=== PATIENT | male | born 1960 | race Caucasian/White ===

== ENCOUNTER 2016-07-12 17:51 | Inpatient (IN) | payer SELFPAY ==
[~2016-07-12] VITALS: Ht 170.2 cm; Wt 71.1 kg
[2016-07-12 17:56] VITALS: BP 139/86; PULSE 120; RESP 20; TEMP 98; O2SAT 98
[2016-07-12 17:57] VITALS: O2SAT 99
[2016-07-12] MEDS ORDERED: SODIUM CHLOR 0.9% 1000 ML INJ 1,000 ML IV SCH (18:02)
[2016-07-12 18:09] VITALS: O2SAT 99
[2016-07-12] MEDS ORDERED: PROPOFOL 1000 MG/100 ML INJ 100 ML IV SCH (18:15)
[2016-07-12] MEDS ORDERED: SODIUM CHLORIDE 0.9% FLUSH 5 ML FLUSH IVF PRN (18:15)
[2016-07-12 18:30] LABS: BLOOD GAS BASE EXCESS -5.6 mmol/L (-2-2); BLOOD GAS CARBOXYHEMOGLOBIN 5.7 % (0-4); BLOOD GAS HCO3 20 mmol/L (22-26); BLOOD GAS O2 HGB SATURATION 91 % (90-100); BLOOD GAS OXYGEN CONTENT 18.9 Vol % (12.0-20.0); BLOOD GAS PCO2 48 mmHg (38-42); BLOOD GAS PO2 165 mmHG (61-120); BLOOD GAS TOTAL HGB 14.5 G/DL (12.0-16.0); TEMP CORR TO 98.6
[2016-07-12 18:31] LABS: CRITICAL VALUE YES; DRAW SITE RT RADIAL; FIO2 50 %; NUMBER OF ARTERIAL PUNCTURES 1; OXYGEN DEVICE VENTILATOR
[2016-07-12 18:32] LABS: STAT YES; ULNAR PULSE PRESENT
--- NOTE | 2016-07-12 18:32 | PD ---
HPI Chief Complaint: Altered Mental Status Time Seen by Provider: 18:02 Travel History International Travel<30 days: No Contact w/Intl Traveler<30days: No Traveled to known affect area: No History of Present Illness HPI Patient is a 55-year-old male who is brought in by EMS unconscious. Per EMS he was with 2 other people reportedly doing K2 and drinking alcohol. They were found unresponsive on scene. EMS is assisting ventilations with BVM. He was given 1 mg of Narcan by EMS without response. Per EMS she has no gag reflex. Patient was seen here last week intoxicated with a minor wound to his left leg. Patient is unresponsive, unable to provide any history. [facility] Past Medical History Medical History: Unable to Obtain Immunizations Current: No Past Surgical History Surgical History: Unable to Obtain Social History Alcohol Use: Yes Tobacco Use: Yes Substance Use: No Allergies-Medications (Allergen,Severity, Reaction): Coded Allergies: No Known Allergies (Unverified , 07/07/16) Reported Meds & Prescriptions Reported Meds & Active Scripts Active No Active Prescriptions or Reported Medications Review of Systems ROS Limitations: Altered Mental Status, Unresponsive Physical Exam Exam Limitations: Clinical Condition, Altered Mental Status Narrative GENERAL: Unresponsive SKIN: Warm and dry. HEAD: Atraumatic. Normocephalic. EYES: Pupils equal and round. No scleral icterus. Pinpoint pupils, extraocular movements intact. ENT: No nasal bleeding or discharge. Mucous membranes pink and moist. NECK: Trachea midline. No JVD. CARDIOVASCULAR: Regular rate and rhythm. No murmur appreciated. RESPIRATORY: No accessory muscle use. Clear to auscultation. Breath sounds equal bilaterally. GASTROINTESTINAL: Abdomen soft, non-tender, nondistended. MUSCULOSKELETAL: No obvious deformities. No clubbing. No cyanosis. No edema. NEUROLOGICAL: Unresponsive, no gag reflex. Unable to assess neurologic status further. Data Data Last Documented VS Vital Signs Date Time Temp Pulse Resp B/P Pulse Ox O2 Delivery O2 Flow Rate FiO2 07/12/16 18:09 99 Ventilator 07/12/16 17:57 50 07/12/16 17:56 98.0 120 20 139/86 Orders Electrocardiogram (07/12/16 18:02) Alcohol (Ethanol) (07/12/16 18:02) Complete Blood Count With Diff (07/12/16 18:02) Comprehensive Metabolic Panel (07/12/16 18:02) Creatine Kinase (Cpk) (07/12/16 18:02) Drug Screen, Random Urine (07/12/16 18:02) Prothrombin Time / Inr (Pt) (07/12/16 18:02) Act Partial Throm Time (Ptt) (07/12/16 18:02) Chest, Single Ap (07/12/16 18:02) Blood Glucose (07/12/16 18:02) Ecg Monitoring (07/12/16 18:02) Iv Access Insert/Monitor (07/12/16 18:02) Cath For Specimen (07/12/16 18:02) Oximetry (07/12/16 18:02) Sodium Chloride 0.9% Flush (Ns Flush) (07/12/16 18:15) Sodium Chlor 0.9% 1000 Ml Inj (Ns 1000 M (07/12/16 18:02) Propofol 1000 Mg/100 Ml Inj (Diprivan 10 (07/12/16 18:15) Restraints Non-Violent GLORIA.Q3H (07/12/16 18:09) Urinary Catheter Management GLORIA.Q8H (07/12/16 18:09) Lactic Acid (07/12/16 18:09) Admit Order (Ed Use Only) (07/12/16 ) Troponin I (07/12/16 18:02) Labs Laboratory Tests Test 07/12/16 07/12/16 18:02 18:10 Sodium Level 139 MEQ/L Potassium Level 3.7 MEQ/L Chloride Level 105 MEQ/L Carbon Dioxide Level 23.7 MEQ/L Anion Gap 10 MEQ/L Blood Urea Nitrogen 9 MG/DL Creatinine 0.69 MG/DL Estimat Glomerular Filtration 119 ML/MIN Rate Random Glucose 106 MG/DL Calcium Level 7.3 MG/DL Protein Corrected Calcium 7.4 MG/DL Total Bilirubin 0.2 MG/DL Aspartate Amino Transf 46 U/L (AST/SGOT) Alanine Aminotransferase 50 U/L (ALT/SGPT) Alkaline Phosphatase 95 U/L Total Creatine Kinase 174 U/L Troponin I LESS THAN 0.02 NG/ML Total Protein 7.0 GM/DL Albumin 3.4 GM/DL Ethyl Alcohol Level 259 MG/DL White Blood Count 11.0 TH/MM3 Red Blood Count 4.68 MIL/MM3 Hemoglobin 15.0 GM/DL Hematocrit 44.8 % Mean Corpuscular Volume 95.7 FL Mean Corpuscular Hemoglobin 32.1 PG Mean Corpuscular Hemoglobin 33.5 % Concent Red Cell Distribution Width 14.8 % Platelet Count 282 TH/MM3 Mean Platelet Volume 7.2 FL Neutrophils (%) (Auto) 77.8 % Lymphocytes (%) (Auto) 15.5 % Monocytes (%) (Auto) 6.1 % Eosinophils (%) (Auto) 0.2 % Basophils (%) (Auto) 0.4 % Neutrophils # (Auto) 8.6 TH/MM3 Lymphocytes # (Auto) 1.7 TH/MM3 Monocytes # (Auto) 0.7 TH/MM3 Eosinophils # (Auto) 0.0 TH/MM3 Basophils # (Auto) 0.0 TH/MM3 CBC Comment DIFF FINAL Differential Comment Prothrombin Time 10.0 SEC Prothromb Time International 0.9 RATIO Ratio Activated Partial 25.9 SEC Thromboplast Time MDM Medical Decision Making Medical Screen Exam Complete: Yes Emergency Medical Condition: Yes Medical Record Reviewed: Yes Differential Diagnosis Drug overdose, electrolyte abnormalities, Infection, respiratory failure Narrative Course Patient is a 55 year old male who comes in unresponsive after a drug overdose. Patient unable to protect his airway. Patient intubated on arrival. Labs sent. Drug screen positive for benzodiazepines. CXR confirms ETT placement. Patient sedated on propofol. Given IVF. Admitted for further management. Procedures Procedure Narrative Residual performed emergently INTUBATION: The patient was put in optimal position for the procedure. Rapid sequence intubation was initiated by me using 20 milligrams of etomidate IV and 100 milligrams of succinylcholine IV. The patient was intubated with a 8.0 cuffed endotracheal tube. Tube placement was confirmed by visualization of the tube and balloon passing through the cords, capnometry and subsequent chest x-ray. Breath sounds were equal and well aerated bilaterally postintubation. No breath sounds over stomach. Patient tolerated procedure well. Mac 4 blade used. Airway is anterior. Diagnosis Primary Impression: Respiratory failure Qualified Code: J96.00 - Acute respiratory failure, unspecified whether with hypoxia or hypercapnia Additional Impression: Drug intoxication Qualified Code: F19.929 - Drug intoxication, with unspecified complication Admitting Information Admitting Physician Requests: Admit Scripts No Active Prescriptions or Reported Meds Loretta Osuna MD Jul 12, 2016 18:31
[2016-07-12 18:41] LABS: AUTOMATED NEUTROPHIL # 8.6 TH/MM3 (1.8-7.7); BASOPHIL % 0.4 % (0.0-2.0); EOSINOPHIL % 0.2 % (0.0-4.0); HEMATOCRIT 44.8 % (39.0-51.0); HEMO FLAGS DIFF FINAL; LYMPH % 15.5 % (9.0-44.0); LYMPHOCYTE # 1.7 TH/MM3 (1.0-4.8); MEAN CELL VOLUME 95.7 FL (80.0-100.0); MEAN CORPUSCULAR HEMOGLOBIN 32.1 PG (27.0-34.0); MEAN CORPUSCULAR HGB CONC 33.5 % (32.0-36.0); MONO % 6.1 % (0.0-8.0); NEUT % 77.8 % (16.0-70.0); PLATELET COUNT 282 TH/MM3 (150-450); RED BLOOD COUNT 4.68 MIL/MM3 (4.50-5.90); RED CELL DISTRIBUTION WIDTH 14.8 % (11.6-17.2)
[2016-07-12] MEDS ORDERED: ETOMIDATE 20 MG/10 ML VIAL IV PUSH ONE (18:45)
[2016-07-12] MEDS ORDERED: SUCCINYLCHOLINE CHLORIDE 200 MG/10 ML VIAL IV PUSH ONE (18:45)
[2016-07-12 18:51] LABS: APTT (PATIENT) 25.9 SEC (24.3-30.1); INTERNATIONAL NORMALIZED RATIO 0.9 RATIO
[2016-07-12 18:59] LABS: AMPHETAMINE, URINE NEG (NEG); BARBITURATES, URINE NEG (NEG); COCAINE, URINE NEG (NEG)
[2016-07-12] MEDS ORDERED: CHLORHEXIDINE GLUCONATE 2 % 1 PACK (2 CLOTHS) TOP PRN (19:00)
[2016-07-12] MEDS ORDERED: POTASSIUM PHOSPHATE MONOBASIC 500 MG TAB PO/TUBE PRN (19:00)
[2016-07-12] MEDS ORDERED: POTASSIUM PHOSPHATE MONOBASIC 500 MG TAB PO PRN (19:00)
[2016-07-12] MEDS ORDERED: MAGNESIUM OXIDE 400 MG TAB PO PRN (19:00)
[2016-07-12] MEDS ORDERED: POTASSIUM CHLOR 20 MEQ PREMIX 100 ML IV PRN ×2 (19:00)
[2016-07-12] MEDS ORDERED: MISCELLANEOUS NURSING INFORMATION XX SCH (19:00)
[2016-07-12] MEDS ORDERED: POTASSIUM CHLOR 40 MEQ PREMIX 100 ML IV-CENTRAL PRN ×2 (19:00)
[2016-07-12] MEDS ORDERED: POTASSIUM CL 40 MEQ/30 ML LIQ UDC PO/TUBE PRN ×2 (19:00)
[2016-07-12] MEDS ORDERED: SODIUM PHOSPHATE INJ 30 MMOL in SODIUM CHLOR 0.9% 250 ML INJ 240 ML IV PRN (19:00)
[2016-07-12] MEDS ORDERED: MAGNESIUM SULFATE INJ 2 GM in SODIUM CHLORIDE 0.9% INJ 96 ML IV PRN (19:00)
[2016-07-12] MEDS ORDERED: ONDANSETRON HCL 4 MG/2 ML VIAL IV PRN (19:00)
[2016-07-12] MEDS ORDERED: MAGNESIUM SULFATE INJ 4 GM in SODIUM CHLORIDE 0.9% INJ 92 ML IV PRN (19:00)
[2016-07-12] MEDS ORDERED: DEXTROSE 50% IN WATER 50 ML VIAL(D50) IV PUSH PRN (19:00)
[2016-07-12] MEDS ORDERED: RESP: ALBUTEROL 2.5 MG/IPRATROPIUM 0.5 MG NEB (PRN) INH (19:00)
[2016-07-12] MEDS ORDERED: POTASSIUM PHOSPHATE INJ 30 MMOL in SODIUM CHLOR 0.9% 250 ML INJ 250 ML IV PRN (19:00)
[2016-07-12] MEDS ORDERED: SODIUM CHLORIDE 0.9% FLUSH 5 ML FLUSH IV FLUSH PRN (19:00)
--- NOTE | 2016-07-12 19:07 | RADRPT ---
EXAM DATE/TIME: 07/12/2016 18:08 [facility] COMPARISON: No previous studies available for comparison. INDICATIONS : Short of breath. MEDICAL HISTORY : None. SURGICAL HISTORY : None. ENCOUNTER: Initial ACUITY: 1 day PAIN SCORE: Non-responsive. LOCATION: Bilateral chest FINDINGS: Endotracheal tube is present suspect position. Nasogastric tube descends into the stomach. There is a irspace infiltrate in the right lung base. Left lung is grossly clear. Cardiac contours are grossly s atisfactory. There are prominent degenerative changes in the shoulders. Previous right clavicle fract ure. CONCLUSION: Right base infiltrate Yaya Naranjo MD on July 12, 2016 at 19:04 Board Certified Radiologist. This report was verified electronically.
[2016-07-12 19:28] LABS: ALKALINE PHOSPHATASE 95 U/L (45-117); ALT (GPT) 50 U/L (12-78); ANION GAP 10 MEQ/L (5-15); AST (GOT) 46 U/L (15-37); BICARBONATE 23.7 MEQ/L (21.0-32.0); BLOOD UREA NITROGEN 9 MG/DL (7-18); CHLORIDE 105 MEQ/L (98-107); CREATINE KINASE 174 U/L (39-308); GLOMERULAR FILTRATION RATE 119 ML/MIN (>89); POTASSIUM 3.7 MEQ/L (3.5-5.1); SODIUM (NA) 139 MEQ/L (136-145); TOTAL BILIRUBIN ADULT 0.2 MG/DL (0.2-1.0)
[2016-07-12 19:38] LABS: CALCIUM-PROTEIN CORRECTED 7.4 MG/DL (8.5-10.1)
--- NOTE | 2016-07-12 19:43 | HHI.HP ---
[facility] Service Critical Care Medicine Primary Care Physician No Primary Care Physician Admission Diagnosis Overdose Diagnosis: Chief Complaint: altered mental status Travel History International Travel<30 Days: No Contact w/Intl Traveler <30 Da: No Traveled to Known Affected Are: No History of Present Illness This is a 55-year-old male who was found unresponsive after reportedly smoking K2. EMS brought the patient in with a GCS of 3, with active bag valve mask support his respirations. There is visible signs of emesis and probable aspiration at the scene. Patient was emergently intubated in the emergency department. Nothing else is known about the patient, and he is unable to tell us any past medical history given his current clinical status. Critical care medicine was consulted to evaluate and manage his altered mental status and presumed toxic encephalopathy, drug overdose. Review of Systems ROS Limitations: Clinical Condition, Intoxication, Intubated, Altered Mental Status, Unresponsive Past Family Social History Allergies: Coded Allergies: No Known Allergies (Unverified , 07/07/16) Past Medical History Unknown secondary to clinical condition of patient Past Surgical History Unknown secondary to clinical condition of patient Reported Medications Unknown secondary to clinical condition of patient Active Ordered Medications See MAR Family History Unknown secondary to clinical condition of patient Social History Unknown secondary to clinical condition of patient Physical Exam Vital Signs Vital Signs Date Time Temp Pulse Resp B/P Pulse Ox O2 Delivery O2 Flow Rate FiO2 07/12/16 18:48 50 07/12/16 18:09 99 Ventilator 07/12/16 17:57 99 50 07/12/16 17:56 98.0 120 20 139/86 98 Physical Exam GENERAL: Middle-aged male, lying in bed, intubated, sedated. Critically ill HEENT: Normocephalic. Atraumatic. Pupils pinpoint, equal, round, conjugate. Mucous members are dry. NECK: Trachea is midline. No JVD. CHEST: Equal chest rise. Clear to auscultation. Intubated. CARDIOVASCULAR: Normal rate, regular rhythm. S1 and S2 without appreciable murmurs. ABDOMEN: Soft, nontender, nondistended. No guarding. MUSCULOSKELETAL: No peripheral edema. Distal pulses 2+. NEUROLOGICAL: RASS -5. GCS 3. Laboratory Laboratory Tests Test 07/12/16 07/12/16 07/12/16 07/12/16 18:02 18:10 18:18 18:20 Sodium Level 139 Potassium Level 3.7 Chloride Level 105 Carbon Dioxide Level 23.7 Anion Gap 10 Blood Urea Nitrogen 9 Creatinine 0.69 Estimat Glomerular Filtration 119 Rate Random Glucose 106 Calcium Level 7.3 Protein Corrected Calcium 7.4 Total Bilirubin 0.2 Aspartate Amino Transf 46 (AST/SGOT) Alanine Aminotransferase 50 (ALT/SGPT) Alkaline Phosphatase 95 Total Creatine Kinase 174 Troponin I LESS THAN 0.02 Total Protein 7.0 Albumin 3.4 Ethyl Alcohol Level 259 White Blood Count 11.0 Red Blood Count 4.68 Hemoglobin 15.0 Hematocrit 44.8 Mean Corpuscular Volume 95.7 Mean Corpuscular Hemoglobin 32.1 Mean Corpuscular Hemoglobin 33.5 Concent Red Cell Distribution Width 14.8 Platelet Count 282 Mean Platelet Volume 7.2 Neutrophils (%) (Auto) 77.8 Lymphocytes (%) (Auto) 15.5 Monocytes (%) (Auto) 6.1 Eosinophils (%) (Auto) 0.2 Basophils (%) (Auto) 0.4 Neutrophils # (Auto) 8.6 Lymphocytes # (Auto) 1.7 Monocytes # (Auto) 0.7 Eosinophils # (Auto) 0.0 Basophils # (Auto) 0.0 CBC Comment DIFF FINAL Differential Comment Prothrombin Time 10.0 Prothromb Time International 0.9 Ratio Activated Partial 25.9 Thromboplast Time Lactic Acid Level 2.0 Urine Opiates Screen NEG Urine Barbiturates Screen NEG Urine Amphetamines Screen NEG Urine Benzodiazepines Screen POS Urine Cocaine Screen NEG Urine Cannabinoids Screen NEG Test 07/12/16 18:22 Blood Gas Puncture Site RT RADIAL Blood Gas Patient Temperature 98.6 Blood Gas HCO3 20 Blood Gas Base Excess -5.6 Blood Gas Oxygen Saturation 91 Arterial Blood pH 7.25 Arterial Blood Partial 48 Pressure CO2 Arterial Blood Partial 165 Pressure O2 Arterial Blood Oxygen Content 18.9 Arterial Blood 5.7 Carboxyhemoglobin Arterial Blood Methemoglobin 2.0 Blood Gas Hemoglobin 14.5 Oxygen Delivery Device VENTILATOR Blood Gas Ventilator Setting AC,12,600,PEEP5 Blood Gas Inspired Oxygen 50 Result Diagram: 07/12/16 1810 07/12/16 180 Assessment and Plan Assessment and Plan Assessment: This is a 55-year-old male who was brought in by EMS in respiratory arrest with active [id number] reportedly secondary to an overdose of K2. He is intubated and very critically ill. Plan by systems: Neurologic: Toxic encephalopathy Alcohol abuse K2 abuse RASS goal -2 Propofol for goal RASS We'll follow-up urine drug screen Follow-up Tylenol level, aspirin level, ethanol level 500 mg IV daily Daily multivitamin Respiratory: Acute hypoxic and hypercarbic respiratory failure Intubated and sedated. Vent bundle Head of bed 30 Wean FiO2 for goal SPO2 greater than 92% Low tidal volume ventilation targeting 6 cc/kg ideal body weight Does not SBT criteria today given altered mental status Stat ABG and a.m. ABG A.m. chest x-ray Nebs every 6 and every 2 when necessary Cardiovascular: Sinus tachycardia Possible hypovolemic shock Continue telemetry Stat EKG Stat lactic acid and serial lactate at midnight Renal: Possible rhabdomyolysis Place Mahmood for accurate I's and O's. Every hour urine outputs -- Strict I/Os Stat CK and follow-up CK at midnight FEN/GI: Acute protein calorie malnutritionmild Acute Intravascular hypovolemia Metabolic acidosis Nothing by mouth ICU electric protocol 2 L normal saline IV bolus Maintenance fluids: Lactated Ringer's at 200 cc an hour D10 at 30 cc an hour for dextrose source Stat BMP, LFTs Daily BMP Heme/ID: Leukocytosis Probable aspiration pneumonitis Stat CBC, coags Daily CBC No infectious etiology suspected this time. If the patient spikes a fever after 48 hours we will cover him with antibiotics for presumed aspiration pneumonia. Endocrine: Hyperglycemia of critical illness -- SSI, medium scale, every 6 hours D10 at 30 cc an hour to prevent hypoglycemia. Prophylaxis: GI Prophylaxis Protonix 40 g IV every 24 hours: Anticipated mechanical ventilation of greater than 48 hours duration DVT Prophylaxis -- SCDs Subcutaneous heparin 5000 every 8 Lines: Peripheral IVs. We will maintain 2 large for peripheral IVs at all time. Ela Dispo: admit the patient to the ICU. He is very critically ill this time. This patient remains critically ill with one or more organ systems which are or may become a threat to life. I have spent in excess of 35 minutes discontinuously in the care and management of this patient. This time is exclusive of procedures, and includes, but is not limited to, evaluation of the patient, review of the medical record, discussions with family, consultants, nursing staff, or respiratory therapy, and documentation in the medical record. Code Status Full code Code Status Full Code Eliceo Moon MD Jul 12, 2016 19:43
[2016-07-12 20:00] VITALS: O2SAT 98
[2016-07-12] MEDS ORDERED: DEXTROSE 10% INJ 1,000 ML IV SCH (20:00)
[2016-07-12] MEDS: CHLORHEXIDINE 0.12% (ORAL KIT) 15 ML CUP MT SCH (20:00)
[2016-07-12] MEDS: SODIUM CHLORIDE 0.9% FLUSH 5 ML FLUSH IV FLUSH SCH (20:42)
[2016-07-12] MEDS: LACTATED RINGER'S 1000 ML INJ 1,000 ML IV SCH (20:42)
[2016-07-12] MEDS: RESP: ALBUTEROL 2.5 MG/IPRATROPIUM 0.5 MG NEB (SCH) INH (20:54)
[2016-07-12] MEDS ORDERED: MULTIVITAMIN INJ 10 ML, THIAMINE INJ 100 MG, FOLIC ACID INJ 1 MG in SODIUM CHLOR 0.45% ... IV ONE (21:00)
[2016-07-12] MEDS ORDERED: MULTIVITAMIN INJ 10 ML, THIAMINE INJ 100 MG, FOLIC ACID INJ 1 MG in SODIUM CHLORID 0.9%... IV ONE ×2 (21:00)
[2016-07-12] MEDS: DOCUSATE SODIUM 50 MG/SENNA 8.6 MG TAB PO SCH (21:02)
[2016-07-12] MEDS: POLYETHYLENE GLYCOL 17 GM PKG PO SCH (21:02)
[2016-07-12 21:03] LABS: BLOOD, URINE NEG (NEG); COMMENT (UR) CATH-CULT NOT IND; CULTURE IF INDICATED CATH CULTURE NOT IND; GLUCOSE,URINE NEG (NEG); KETONE, URINE NEG (NEG); NITRITE,URINE NEG (NEG); URIC ACID CRYSTALS, URINE RARE /hpf; URINE COLOR YELLOW (YELLW/STRAW)
[2016-07-12] MEDS: PROPOFOL 1000 MG/100 ML INJ 100 ML IV SCH (22:04)
[2016-07-12 23:20] VITALS: O2SAT 100
[2016-07-12 23:40] VITALS: O2SAT 98
[2016-07-13] VITALS (16 sets, daily range): BP systolic 122–145; BP diastolic 73–90; PULSE 74–93; RESP 15–28; TEMP 97.7–99; O2SAT 93–100
[2016-07-13] MEDS: HEPARIN SODIUM - SQ 10,000 UNITS/ML VIAL SQ SCH ×4 (00:48→22:00)
[2016-07-13] MEDS: LACTATED RINGER'S 1000 ML INJ 1,000 ML IV SCH ×4 (01:00→13:17)
[2016-07-13 02:11] LABS: ACETAMINOPHEN 2.7 MCG/ML (10.0-30.0); BICARBONATE 20.4 MEQ/L (21.0-32.0); POTASSIUM 3.6 MEQ/L (3.5-5.1)
[2016-07-13 02:35] LABS: CKMB 22.2 NG/ML (0.5-3.6)
--- NOTE | 2016-07-13 02:54 | RADRPT ---
EXAM DATE/TIME: 07/13/2016 02:28 [facility] COMPARISON: CHEST SINGLE AP, July 12, 2016, 18:08. INDICATIONS : Atelectasis MEDICAL HISTORY : Unknown SURGICAL HISTORY : Unknown ENCOUNTER: Subsequent ACUITY: 2 days PAIN SCORE: Non-responsive. LOCATION: Bilateral chest FINDINGS: A single portable frontal view the chest shows the tip of the endotracheal tube 2 cm cephalad to the luis. Tip of the NG tube is in the fundus of the stomach. Elevation of the right hemidiaphragm. No infiltrate or effusion. Heart is normal in size. Advanced osteoarthritis of the shoulders. CONCLUSION: No acute infiltrate or effusion observed on the current study. Elevation of the right hemidiaphragm. Raul Nix Jr., MD on July 13, 2016 at 2:52 Board Certified Radiologist. This report was verified electronically.
[2016-07-13] MEDS: THIAMINE INJ 100 MG in SODIUM CHLORIDE 0.9% INJ 100 ML IV SCH (03:27)
[2016-07-13] MEDS: CHLORHEXIDINE GLUCONATE 2 % 1 PACK (2 CLOTHS) TOP SCH (03:28)
[2016-07-13] MEDS: RESP: ALBUTEROL 2.5 MG/IPRATROPIUM 0.5 MG NEB (SCH) INH ×2 (03:40→07:56)
[2016-07-13 04:47] LABS: HEMATOCRIT 42.4 % (39.0-51.0); MEAN CELL VOLUME 94.9 FL (80.0-100.0); MEAN CORPUSCULAR HEMOGLOBIN 31.9 PG (27.0-34.0); MEAN CORPUSCULAR HGB CONC 33.7 % (32.0-36.0); PLATELET COUNT 230 TH/MM3 (150-450); RED BLOOD COUNT 4.47 MIL/MM3 (4.50-5.90); REVIEW FLAG FINAL; WHITE BLOOD COUNT 12.2 TH/MM3 (4.0-11.0)
[2016-07-13] MEDS: INSULIN NovoLIN REGULAR SUPPLEMENTAL SCALE SQ SCH ×4 (06:00→18:00)
[2016-07-13] MEDS: QUEtiapine FUMARATE 100 MG TAB PO SCH ×2 (07:44→13:28)
[2016-07-13] MEDS: PROPOFOL 1000 MG/100 ML INJ 100 ML IV SCH (07:44)
[2016-07-13] MEDS: DEXMEDETOMIDINE INJ 50 ML IV SCH ×4 (07:45→15:12)
[2016-07-13] MEDS: POLYETHYLENE GLYCOL 17 GM PKG PO SCH ×2 (08:01→21:00)
[2016-07-13] MEDS: MULTIVITAMIN TAB PO SCH (08:01)
[2016-07-13] MEDS: DOCUSATE SODIUM 50 MG/SENNA 8.6 MG TAB PO SCH ×2 (08:01→21:00)
[2016-07-13] MEDS: SODIUM CHLORIDE 0.9% FLUSH 5 ML FLUSH IV FLUSH SCH ×2 (08:02→21:00)
[2016-07-13] MEDS: CHLORHEXIDINE 0.12% (ORAL KIT) 15 ML CUP MT SCH ×2 (08:02→20:00)
[2016-07-13] MEDS ORDERED: PANTOPRAZOLE SODIUM 40 MG VIAL IV SCH (09:00)
--- NOTE | 2016-07-13 11:37 | EKG ---
Date Performed: 07/12/2016 Time Performed: 19:46:31 PTAGE: 55 years EKG: Sinus rhythm SEPTAL MYOCARDIAL INFARCTION ABNORMAL ECG PREVIOUS TRACING : 08/15/2014 16.28 DOCTOR: Dung Vivas Interpretating Date/Time 07/13/2016 11:36:03
--- NOTE | 2016-07-13 15:17 | RADRPT ---
EXAM DATE/TIME: 07/13/2016 14:36 [facility] COMPARISON: No previous studies available for comparison. INDICATIONS : Pain MEDICAL HISTORY : None. SURGICAL HISTORY : None. ENCOUNTER: Subsequent ACUITY: 1 week PAIN SCORE: 4/10 LOCATION: Right Wrist FINDINGS: Two view examination of the right wrist demonstrates no soft tissue swelling, dislocation, or fractur e. There is advanced osteoarthritis of the first carpometacarpal joint. CONCLUSION: 1. No acute findings. Advanced osteoarthritis at the first carpometacarpal joint. Mild osteoarthritis of the remainder of the right wrist. Vic Ovalle MD on July 13, 2016 at 15:11 Board Certified Radiologist. This report was verified electronically.
--- NOTE | 2016-07-13 16:05 | RADRPT ---
EXAM DATE/TIME: 07/13/2016 14:21 [facility] COMPARISON: No previous studies available for comparison. INDICATIONS: Pain MEDICAL HISTORY: None. SURGICAL HISTORY: None. ENCOUNTER: Subsequent ACUITY: 3 days PAIN SCORE: 4/10 LOCATION: Right Shoulder FINDINGS: There are extensive degenerative changes in the shoulder with bone articulating with bone in the ann oid. There is a high-riding humeral head. There is a well-healed right clavicular fracture. Lung ap ex is clear. CONCLUSION: Degenerative changes without fracture. Kameron Vicente MD FACR on July 13, 2016 at 15:54 Board Certified Radiologist. This report was verified electronically.
--- NOTE | 2016-07-13 16:07 | HHI.CCPN ---
Subjective Remarks/Hospital Course Hospital Course: This is a 55-year-old male who was found unresponsive after reportedly smoking K2. EMS brought the patient in with a GCS of 3, with active bag valve mask support his respirations. There is visible signs of emesis and probable aspiration at the scene. Patient was emergently intubated in the emergency department. Nothing else is known about the patient, and he is unable to tell us any past medical history given his current clinical status. Critical care medicine was consulted to evaluate and manage his altered mental status and presumed toxic encephalopathy, drug overdose. Subjective: 07/13: seen and examined at 07:30 this AM. starting to wake up. still on propofol for RASS goal -2. significant agitation overnight. uop adequate. lactate downtrending. Objective Vital Signs Date Time Temp Pulse Resp B/P Pulse Ox O2 Delivery O2 Flow Rate FiO2 07/13/16 14:00 76 07/13/16 13:50 40 07/13/16 12:00 100 07/13/16 12:00 99.0 16 122/79 07/12/16 18:09 Ventilator Result Diagram: 07/13/16 0357 07/13/16 0136 Other Results Laboratory Tests Test 07/12/16 18:22 Blood Gas Puncture Site RT RADIAL Blood Gas Patient Temperature 98.6 Blood Gas HCO3 20 mmol/L (22-26) Blood Gas Base Excess -5.6 mmol/L (-2-2) Blood Gas Oxygen Saturation 91 % (90-100) Arterial Blood pH 7.25 (7.380-7.420) Arterial Blood Partial 48 mmHg (38-42) Pressure CO2 Arterial Blood Partial 165 mmHG Pressure O2 (61-120) Arterial Blood Oxygen Content 18.9 Vol % (12.0-20.0) Arterial Blood 5.7 % (0-4) Carboxyhemoglobin Arterial Blood Methemoglobin 2.0 % (0-2) Blood Gas Hemoglobin 14.5 G/DL (12.0-16.0) Oxygen Delivery Device VENTILATOR Blood Gas Ventilator Setting AC,12,600,PEEP5 Blood Gas Inspired Oxygen 50 % Objective Remarks GENERAL: Middle-aged male, lying in bed, intubated, sedated. HEENT: Normocephalic. Atraumatic. Pupils pinpoint, equal, round, conjugate. Mucous members moist. NECK: Trachea is midline. No JVD. CHEST: Equal chest rise. Clear to auscultation. Intubated. CARDIOVASCULAR: Normal rate, regular rhythm. S1 and S2 without appreciable murmurs. ABDOMEN: Soft, nontender, nondistended. No guarding. MUSCULOSKELETAL: No peripheral edema. Distal pulses 2+. NEUROLOGICAL: RASS -2. purposeful. not yet following commands. A/P Assessment and Plan Assessment: This is a 55-year-old male who was brought in by EMS in respiratory arrest with active [id number] reportedly secondary to an overdose of K2. He remains intubated, although most end-organs are improving. For his agitation , we will transition the patient to Precedex from propofol and work towards waking, weaning to extubate the patient. If he remains on pathway, we will work towards normalizing the patient, and I anticipate if on pathway, he will be able to be stable and leave the icu late tonight or tomorrow morning to the floor. Plan by systems: Neurologic: Toxic encephalopathy Agitated Delirium Alcohol abuse K2 abuse RASS goal 0 Precedex for goal RASS --continue daily thiamine. Daily multivitamin Respiratory: Acute hypoxic and hypercarbic respiratory failure- resolving. --SBT today. if he passes, will work towards extubation. Vent bundle Head of bed 30 Wean FiO2 for goal SPO2 greater than 92% Nebs every 6 and every 2 when necessary Cardiovascular: Sinus tachycardia- resolved. Possible hypovolemic shock- resolved. --continue MIVF. lactate downtrending. Renal: Continue diana for now. if he extubates on pathway, will d/c diana. -- Strict I/Os CK downtrending. will stop trending. FEN/GI: Acute protein calorie malnutritionmild Acute Intravascular hypovolemia- resolved. Metabolic acidosis- resolved. NPO. if he extubates on pathway, will perform nursing bedside swallow evaluation, and if he passes, will advance him to clears and then to regular basic diet as tolerated. ICU electric protocol Maintenance fluids: Lactated Ringer's at 200 cc an hour D10 at 30 cc an hour for dextrose source Daily BMP Heme/ID: Probable aspiration pneumonitis Daily CBC No infectious etiology suspected this time. If the patient spikes a fever after 48 hours we will cover him with antibiotics for presumed aspiration pneumonia. Endocrine: Hyperglycemia of critical illness -- SSI, medium scale, every 6 hours D10 at 30 cc an hour to prevent hypoglycemia. Prophylaxis: GI Prophylaxis Protonix 40 g IV every 24 hours: Anticipated mechanical ventilation of greater than 48 hours duration DVT Prophylaxis -- SCDs Subcutaneous heparin 5000 every 8 Lines: Peripheral IVs. Diana Dispo: remain in the ICU. if he extubates on pathway and remains stable for 6-8 hours after this, we will consider transitioning to floor status with hospitalist following. Eliceo Moon MD Jul 13, 2016 16:07 This patient remains critically ill with one or more organ systems which are or may become a threat to life. I have spent in excess of 35 minutes discontinuously in the care and management of this patient. This time is exclusive of procedures, and includes, but is not limited to, evaluation of the patient, review of the medical record, discussions with family, consultants, nursing staff, or respiratory therapy, and documentation in the medical record. Code Status Full code Eliceo Moon MD Jul 13, 2016 16:07
--- NOTE | 2016-07-13 16:16 | RADRPT ---
EXAM DATE/TIME: 07/13/2016 14:30 [facility] COMPARISON: No previous studies available for comparison. INDICATIONS: Pain MEDICAL HISTORY: None. SURGICAL HISTORY: None. ENCOUNTER: Subsequent ACUITY: 1 week PAIN SCORE: 4/10 LOCATION: Right Forearm FINDINGS: There are degenerative changes in the carpus. Alignment is anatomic. Fracture is not appreciated. CONCLUSION: Degenerative changes without fracture. Kameron Vicente MD FACR on July 13, 2016 at 15:55 Board Certified Radiologist. This report was verified electronically.
[2016-07-13] MEDS ORDERED: HALOPERIDOL LACTATE 5 MG/ML AMP IV PRN (16:45)
[2016-07-13] MEDS ORDERED: FLUMAZENIL 1 MG/10 ML VIAL IV PUSH PRN (16:45)
[2016-07-13] MEDS ORDERED: LORazepam 2 MG TAB PO PRN (16:45)
[2016-07-13] MEDS ORDERED: LORazepam 2 MG/ML VIAL IV PUSH PRN ×4 (16:45)
[2016-07-13] MEDS ORDERED: LORazepam 1 MG TAB PO PRN (16:45)
[2016-07-13] MEDS: HYDROmorphone HCL PF 1 MG/ML VIAL IV PUSH PRN (23:09)
[2016-07-14] VITALS (7 sets, daily range): BP systolic 139–167; BP diastolic 80–94; PULSE 76–105; RESP 16–33; TEMP 98.2–98.9; O2SAT 96–98
[2016-07-14] MEDS: THIAMINE INJ 100 MG in SODIUM CHLORIDE 0.9% INJ 100 ML IV SCH (01:34)
[2016-07-14] MEDS: CHLORHEXIDINE GLUCONATE 2 % 1 PACK (2 CLOTHS) TOP SCH (04:00)
[2016-07-14] MEDS: HEPARIN SODIUM - SQ 10,000 UNITS/ML VIAL SQ SCH (04:34)
[2016-07-14] MEDS: HYDROmorphone HCL PF 1 MG/ML VIAL IV PUSH PRN ×2 (04:35→10:11)
[2016-07-14 05:13] LABS: HEMATOCRIT 40.2 % (39.0-51.0); MEAN CELL VOLUME 94.3 FL (80.0-100.0); MEAN CORPUSCULAR HEMOGLOBIN 32.2 PG (27.0-34.0); MEAN CORPUSCULAR HGB CONC 34.1 % (32.0-36.0); PLATELET COUNT 189 TH/MM3 (150-450); RED BLOOD COUNT 4.26 MIL/MM3 (4.50-5.90); RED CELL DISTRIBUTION WIDTH 14.3 % (11.6-17.2); REVIEW FLAG FINAL; WHITE BLOOD COUNT 12.2 TH/MM3 (4.0-11.0)
[2016-07-14 05:30] LABS: POTASSIUM 3.7 MEQ/L (3.5-5.1)
[2016-07-14] MEDS: INSULIN NovoLIN REGULAR SUPPLEMENTAL SCALE SQ SCH ×2 (05:31)
[2016-07-14] MEDS: CHLORHEXIDINE 0.12% (ORAL KIT) 15 ML CUP MT SCH (07:34)
[2016-07-14] MEDS: MULTIVITAMIN TAB PO SCH (08:12)
[2016-07-14] MEDS: POLYETHYLENE GLYCOL 17 GM PKG PO SCH (08:13)
[2016-07-14] MEDS: DOCUSATE SODIUM 50 MG/SENNA 8.6 MG TAB PO SCH (08:13)
[2016-07-14] MEDS: SODIUM CHLORIDE 0.9% FLUSH 5 ML FLUSH IV FLUSH SCH (08:13)
--- NOTE | 2016-07-14 08:51 | HHI.PR ---
Subjective Remarks Follow-up encephalopathy 07/14/16-patient seen and examined; alert and oriented 3. Patient denies ever using K2 states states he only drinks alcohol and smoke one and half pack a day. Patient complains of painful right hand swelling. Currently afebrile. He denies any prior medical history and he is not currently on any medications. Patient is homeless and currently unemployed Objective Vitals Vital Signs Date Time Temp Pulse Resp B/P Pulse Ox O2 Delivery O2 Flow Rate FiO2 07/14/16 06:00 83 07/14/16 04:00 76 07/14/16 04:00 98.9 76 16 167/94 98 07/14/16 02:00 78 07/14/16 00:00 98.2 82 25 149/80 97 07/14/16 00:00 82 07/13/16 22:00 90 07/13/16 20:17 95 21 07/13/16 20:00 93 07/13/16 20:00 98.8 92 21 142/77 93 07/13/16 18:00 81 07/13/16 16:00 99 Nasal Cannula 4.00 07/13/16 16:00 82 07/13/16 16:00 99 Nasal Cannula 4 07/13/16 16:00 98.4 82 28 125/73 98 07/13/16 16:00 76 07/13/16 14:00 76 07/13/16 13:50 40 07/13/16 12:00 100 40 07/13/16 12:00 75 07/13/16 12:00 40 07/13/16 12:00 99.0 74 16 122/79 100 07/13/16 10:00 76 I/O 07/13/16 07/13/16 07/13/16 07/14/16 07/14/16 07/14/16 07:00 15:00 23:00 07:00 15:00 23:00 Intake Total 2136 ml 2066 ml 250 ml 250 ml Output Total 1250 ml 1225 ml 700 ml 650 ml Balance 886 ml 841 ml -450 ml -400 ml Intake Oral 0 ml 250 ml 150 ml IV Total 2136 ml 2066 ml 100 ml Output Urine Total 650 ml 1025 ml 700 ml 650 ml Gastric Drainage Total 600 ml 200 ml # Bowel Movements 0 0 Result Diagram: 07/14/16 0418 07/14/16 0418 Imaging Last Impressions Wrist X-Ray 07/13/16 1353 Signed Impressions: Service Date/Time: Wednesday, July 13, 2016 14:36 - CONCLUSION: 1. No acute findings. Advanced osteoarthritis at the first carpometacarpal joint. Mild osteoarthritis of the remainder of the right wrist. Vic Ovalle MD Shoulder X-Ray 07/13/16 1353 Signed Impressions: Service Date/Time: Wednesday, July 13, 2016 14:21 - CONCLUSION: Degenerative changes without fracture. Kameron Vicente MD FACR Radius/Ulna X-Ray 07/13/16 1353 Signed Impressions: Service Date/Time: Wednesday, July 13, 2016 14:30 - CONCLUSION: Degenerative changes without fracture. Kameron Vicente MD FACR Chest X-Ray 07/13/16 0600 Signed Impressions: Service Date/Time: Wednesday, July 13, 2016 02:28 - CONCLUSION: No acute infiltrate or effusion observed on the current study. Elevation of the right hemidiaphragm. Raul Nix Jr., MD Objective Remarks GENERAL: NAD SKIN: Warm and dry. HEAD: Normocephalic. EYES: No scleral icterus. No injection or drainage. NECK: Supple, trachea midline. No JVD or lymphadenopathy. CARDIOVASCULAR: Regular rate and rhythm without murmurs, gallops, or rubs. RESPIRATORY: Breath sounds equal bilaterally. No accessory muscle use. GASTROINTESTINAL: Abdomen soft, non-tender, nondistended. MUSCULOSKELETAL: No cyanosis, or edema. Swelling right hand BACK: Nontender without obvious deformity. No CVA tenderness. A/P Problem List: (1) Toxic metabolic encephalopathy ICD Code: G92 Status: Acute (2) Respiratory failure ICD Code: J96.90 Status: Acute (3) Alcohol intoxication ICD Code: F10.129 Status: Acute Assessment and Plan 55-year-old male with Toxic encephalopathy-resolved Agitated Delirium-resolved Alcohol abuse K2 abuse-patient denies ever using it s/p Precedex for goal RASS --continue daily thiamine. Daily multivitamin -Continue CIWS Acute hypoxic and hypercarbic respiratory failure- resolved. --Status post extubation. Nebs every 6 and every 2 when necessary Sinus tachycardia- resolved. Possible hypovolemic shock- resolved. --continue MIVF. lactate downtrending. Acute protein calorie malnutritionmild Acute Intravascular hypovolemia- resolved. Metabolic acidosis- resolved. d/c Lactated Ringer's at 200 cc an hour D10 at 30 cc an hour for dextrose source Daily BMP Probable aspiration pneumonitis Daily CBC No infectious etiology suspected this time. If the patient spikes a fever after 48 hours we will cover him with antibiotics for presumed aspiration pneumonia. Hyperglycemia of critical illness -- d/c SSI, medium scale, every 6 hours Right hand swelling: Check an x-ray to rule out fracture and treat accordingly GI Prophylaxis Change to by mouth Protonix 40 mg every 24 hours DVT Prophylaxis -- SCDs Subcutaneous heparin 5000 every 8 Will discharge home if right hand x-ray negative Problem Qualifiers (1) Respiratory failure: Qualified Code: J96.00 - Acute respiratory failure, unspecified whether with hypoxia or hypercapnia Marlon Juan MD Jul 14, 2016 08:51
--- NOTE | 2016-07-14 09:17 | RADRPT ---
EXAM DATE/TIME: 07/14/2016 08:36 [facility] COMPARISON: No previous studies available for comparison. INDICATIONS : Right hand pain and swelling, no trauma. MEDICAL HISTORY : Smoker. SURGICAL HISTORY : None. ENCOUNTER: Initial ACUITY: 2 days PAIN SCORE: 10/10 LOCATION: Right entire hand. FINDINGS: Mineralization is normal. There is no evidence of fracture or dislocation. There is severe arthritic change at the thumb carpal joint and less severe arthritic changes elsewhere in the carpus. Mild diff use swelling of the soft tissues. CONCLUSION: Arthritic changes most severely at the thumb carpal joint. No acute bony findings. Yaya Naranjo MD on July 14, 2016 at 9:14 Board Certified Radiologist. This report was verified electronically.
--- NOTE | 2016-07-14 10:00 | HHI.DS ---
Discharge Summary Admission Date Jul 12, 2016 at 18:16 Discharge Date: Jul 14, 2016 Admitting Diagnosis Overdose (1) Toxic metabolic encephalopathy ICD Code: G92 (2) Respiratory failure ICD Code: J96.90 Diagnosis: Principal (3) Alcohol intoxication ICD Code: F10.129 Diagnosis: Principal Procedures None Brief History - From Admission This is a 55-year-old male who was found unresponsive after reportedly smoking K2. EMS brought the patient in with a GCS of 3, with active bag valve mask support his respirations. There is visible signs of emesis and probable aspiration at the scene. Patient was emergently intubated in the emergency department. Nothing else is known about the patient, and he is unable to tell us any past medical history given his current clinical status. Critical care medicine was consulted to evaluate and manage his altered mental status and presumed toxic encephalopathy, drug overdose. CBC/BMP: 07/14/16 0418 07/14/16 0418 Significant Findings Laboratory Tests Test 07/12/16 07/12/16 07/12/16 07/12/16 18:02 18:10 18:20 18:22 Calcium Level 7.3 MG/DL (8.5-10.1) Protein Corrected Calcium 7.4 MG/DL (8.5-10.1) Aspartate Amino Transf 46 U/L (15-37) (AST/SGOT) Troponin I LESS THAN 0.02 NG/ML (0.02-0.05) Salicylates Level 2.0 MG/DL (2.8-20.0) Ethyl Alcohol Level 259 MG/DL (0-5) Neutrophils (%) (Auto) 77.8 % (16.0-70.0) Neutrophils # (Auto) 8.6 TH/MM3 (1.8-7.7) Urine Uric Acid Crystals RARE /hpf (NONE) Urine Benzodiazepines Screen POS (NEG) Blood Gas HCO3 20 mmol/L (22-26) Blood Gas Base Excess -5.6 mmol/L (-2-2) Arterial Blood pH 7.25 (7.380-7.420) Arterial Blood Partial 48 mmHg (38-42) Pressure CO2 Arterial Blood Partial 165 mmHG Pressure O2 (61-120) Arterial Blood 5.7 % (0-4) Carboxyhemoglobin Test 07/13/16 07/13/16 07/13/16 07/14/16 01:36 03:57 07:45 04:18 Chloride Level 110 MEQ/L (98-107) Carbon Dioxide Level 20.4 MEQ/L (21.0-32.0) Creatinine 0.57 MG/DL 0.47 MG/DL (0.60-1.30) (0.60-1.30) Calcium Level 7.6 MG/DL 8.2 MG/DL (8.5-10.1) (8.5-10.1) Total Creatine Kinase 489 U/L 440 U/L (39-308) (39-308) Creatine Kinase MB 22.2 NG/ML 18.0 NG/ML (0.5-3.6) (0.5-3.6) Creatine Kinase MB % 4.5 % (0.0-4.0) 4.1 % (0.0-4.0) Acetaminophen Level 2.7 MCG/ML (10.0-30.0) White Blood Count 12.2 TH/MM3 12.2 TH/MM3 (4.0-11.0) (4.0-11.0) Red Blood Count 4.47 MIL/MM3 4.26 MIL/MM3 (4.50-5.90) (4.50-5.90) Troponin I 0.52 NG/ML (0.02-0.05) Blood Urea Nitrogen 5 MG/DL (7-18) Imaging Last Impressions Wrist X-Ray 07/13/16 836 Signed Impressions: Service Date/Time: Wednesday, July 13, 2016 14:36 - CONCLUSION: 1. No acute findings. Advanced osteoarthritis at the first carpometacarpal joint. Mild osteoarthritis of the remainder of the right wrist. Vic Ovalle MD Shoulder X-Ray 07/13/16 772 Signed Impressions: Service Date/Time: Wednesday, July 13, 2016 14:21 - CONCLUSION: Degenerative changes without fracture. Kameron Vicente MD FACR Radius/Ulna X-Ray 07/13/16 8744 Signed Impressions: Service Date/Time: Wednesday, July 13, 2016 14:30 - CONCLUSION: Degenerative changes without fracture. Kameron Vicente MD FACR Chest X-Ray 07/13/16 0600 Signed Impressions: Service Date/Time: Wednesday, July 13, 2016 02:28 - CONCLUSION: No acute infiltrate or effusion observed on the current study. Elevation of the right hemidiaphragm. Raul Nix Jr., MD PE at Discharge GENERAL: NAD SKIN: Warm and dry. HEAD: Normocephalic. EYES: No scleral icterus. No injection or drainage. NECK: Supple, trachea midline. No JVD or lymphadenopathy. CARDIOVASCULAR: Regular rate and rhythm without murmurs, gallops, or rubs. RESPIRATORY: Breath sounds equal bilaterally. No accessory muscle use. GASTROINTESTINAL: Abdomen soft, non-tender, nondistended. MUSCULOSKELETAL: No cyanosis, or edema. Swelling right hand BACK: Nontender without obvious deformity. No CVA tenderness. Hospital Course Patient was admitted secondary to respiratory failure and toxic encephalopathy was intubated on 07/12/16 and extubated the following day. He was placed on rally pack and CIWS per protocol was initiated. All electrolyte abnormalities were corrected accordingly. His diet was advanced which patient tolerated without any competition nausea and vomiting. Secondary to right hand pain and swelling x-ray was obtained however was unremarkable. DVT and GI prophylaxis were provided. Pt Condition on Discharge: Stable Discharge Disposition: Discharge Home Discharge Time: <= 30 minutes Discharge Instructions DIET: Follow Instructions for: Heart Healthy Diet Activities you can perform: Regular-No Restrictions Follow up Referrals: PCP Follow-up - 1 Week New Medications: Folic Acid (Folate) 1 Mg Tab 1 MG PO DAILY Nutritional Supplement #30 Ref 0 TAB Multiple Vitamin (Thera/Beta-Carotene) 1 Tab Tab 1 TAB PO DAILY Alcohol Detox #30 TAB Thiamine (Vitamin B-1) 100 Mg Tab 100 MG PO DAILY Alcohol Detox #30 TAB Marlon Juan MD Jul 14, 2016 10:00
[2016-07-14] MEDS ORDERED: FOLI1TAB4 PO (10:02)
[2016-07-14] MEDS ORDERED: THERTAB15 PO (10:02)
[2016-07-14] MEDS ORDERED: VITA100T2 PO (10:02)
[2016-07-16] MEDS ORDERED: THIAMINE HCL 100 MG TAB PO SCH (09:00)
== END 2016-07-14 12:43 | disposition home or self-care (01) | DRG 917 ==
LOC: NEPE 17:51 → NEDH 18:16 → N03B 23:26
PROVIDERS: ADMIT Internal Medicine Critical Care Medicine; ATTEND Hospitalist
PROC: 0BH17EZ Insertion of Endotracheal Airway into Trachea, Via Natural or Artificial Opening (ICD-10-PCS; principal; 2016-07-12)
PROC: 5A1935Z Respiratory Ventilation, Less than 24 Consecutive Hours (ICD-10-PCS; 2016-07-12)
DX: T51.0X1A Toxic effect of ethanol, accidental (unintentional), initial encounter (principal); G92 Toxic encephalopathy; J96.01 Acute respiratory failure with hypoxia; J96.02 Acute respiratory failure with hypercapnia; F10.121 Alcohol abuse with intoxication delirium; E87.2 Acidosis; E44.1 Mild protein-calorie malnutrition; E86.1 Hypovolemia; R73.9 Hyperglycemia, unspecified; Y90.8 Blood alcohol level of 240 mg/100 ml or more; R00.0 Tachycardia, unspecified; R22.9 Localized swelling, mass and lump, unspecified; Z59.0 Homelessness; Z72.0 Tobacco use
CPT/HCPCS: 31500; 36600; 71010; 73030; 73090; 73100; 73120; 80048; 80053; 80307; 80320; 80329; 81001; 82550; 82552; 82805; 82948; 83605; 84484; 85025; 85027; 85610; 85730; 87040; 87641; 93005; 94002; 94003; 94150; 94640; 94664; 94668; 96374; C9113; C9399; G0480; J0330; J1170; J1644; J3411; J7030; J7040; J7120